=== PATIENT | female | born 1975 | race African-American/Black ===

== ENCOUNTER → 2017-01-08 | Outpatient (CLI) | payer BC | LOC: WI 06:53 | PROVIDERS: ATTEND Internal Medicine | DX: R14.0 Abdominal distension (gaseous) (principal); R11.2 Nausea with vomiting, unspecified | CPT/HCPCS: 76700 ==

== ENCOUNTER 2018-03-28 21:29 | Emergency (ER) | payer SELFPAY ==
--- NOTE | 2018-03-28 22:04 | RADIOLOGY REPORT (SQ) ---
EXAM DESCRIPTION: CHEST SINGLE VIEW COMPLETED DATE/TIME: 03/28/2018 9:56 pm REASON FOR STUDY: cough COMPARISON: 08/20/2010 EXAM PARAMETERS: NUMBER OF VIEWS: One view. TECHNIQUE: Single frontal radiographic view of the chest acquired. RADIATION DOSE: NA LIMITATIONS: None. FINDINGS: LUNGS AND PLEURA: No opacities, masses or pneumothorax. No pleural effusion. MEDIASTINUM AND HILAR STRUCTURES: No masses. Contour normal. HEART AND VASCULAR STRUCTURES: Heart normal in size. Normal vasculature. BONES: No acute findings. HARDWARE: None in the chest. OTHER: No other significant finding. IMPRESSION: NO ACUTE RADIOGRAPHIC FINDING IN THE CHEST. TECHNICAL DOCUMENTATION: JOB ID: [id number] [employer]- All Rights Reserved Reading location - IP/workstation name: [email or web address]
[2018-03-28 22:09] VITALS: BP 169/96
[2018-03-28] MEDS ORDERED: AZITHROMYCIN 250 MG TABLET PO ONE (23:35)
--- NOTE | 2018-03-28 23:35 | ER Document Report ---
ED General - General Chief Complaint: Cough Stated Complaint: FEVER,COUGH Time Seen by Provider: 03/28/18 22:32 Mode of Arrival: Ambulatory Information source: Patient Notes: Chief complaint: Cough History of complain:( obtained from----patient) 42 years old female presents today with 4 day history of increased cough in the last 2 weeks of coughing on and off. States he was swimming on a [place] and swallowed some wor[place] water. Denies any fever chills recently. Coughing up yellow-green sputum. No difficulty in breathing or wheezing. Onset: As above Duration: Gradual Severity: Moderate Quality: Sharp Context: As above Exacerbating factor and relieving factors: Exertion REVIEW OF SYSTEMS: CONSTITUTIONAL : Denies fever, chills, or sweats. Denies recent illness. EENT: Denies eye, ear, throat, or mouth pain or symptoms. Denies nasal or sinus congestion or discharge. Denies throat, tongue, or mouth swelling or difficulty swallowing. CARDIOVASCULAR: Denies chest pain. Denies palpitations or racing or irregular heart beat. Denies ankle edema. RESPIRATORY: Denies cough, cold, or chest congestion. Denies shortness of breath, difficulty breathing, or wheezing. GASTROINTESTINAL: Denies distention. Denies nausea, vomiting, or diarrhea. Denies blood in vomitus, stools, or per rectum. Denies black, tarry stools. Denies constipation. GENITOURINARY: Denies difficulty urinating, painful urination, burning, frequency, blood in urine, or discharge. FEMALE GENITOURINARY: Denies vaginal bleeding, heavy or abnormal periods, irregular periods. Denies vaginal discharge or odor. MUSCULOSKELETAL: Denies back or neck pain or stiffness. Denies joint pain or swelling. SKIN: Denies rash, lesions or sores. HEMATOLOGIC : Denies easy bruising or bleeding. LYMPHATIC: Denies swollen, enlarged glands. NEUROLOGICAL: Denies confusion or altered mental status. Denies passing out or loss of consciousness. Denies dizziness or lightheadedness. Denies headache. Denies weakness or paralysis or loss of use of either side. Denies problems with gait or speech. Denies sensory loss, numbness, or tingling. Denies seizures. PSYCHIATRIC: Denies anxiety or stress. Denies depression, suicidal ideation, or homicidal ideation. ALL OTHER SYSTEMS REVIEWED AND NEGATIVE. PHYSICAL EXAMINATION: GENERAL: Well-appearing, well-nourished and in no acute distress. HEAD: Atraumatic, normocephalic. EYES: Pupils equal round and reactive to light, extraocular movements intact, conjunctiva are normal. ENT: Nares patent, oropharynx clear without exudates. Moist mucous membranes. NECK: Normal range of motion, supple without lymphadenopathy LUNGS: Breath sounds clear to auscultation bilaterally and equal. No wheezes rales or rhonchi. HEART: Regular rate and rhythm without murmurs ABDOMEN: Soft, nontender, nondistended abdomen. No guarding, no rebound. No masses appreciated. Examination of genitals-deferred Musculoskeletal: Normal range of motion, no pitting or edema. No cyanosis. NEUROLOGICAL: Cranial nerves grossly intact. Normal speech, normal gait. Normal sensory, motor exams PSYCH: Normal mood, normal affect. SKIN: Warm, Dry, normal turgor, no rashes or lesions noted. Dictation was performed using [employer] voice recognition software TRAVEL OUTSIDE OF THE [place] IN LAST 30 DAYS: No - HPI Onset: Just prior to arrival Past Medical History - Social History Smoking Status: Never Smoker Cigarette use (# per day): No Chew tobacco use (# tins/day): No Smoking Education Provided: No Frequency of alcohol use: Rare Drug Abuse: None Lives with: Family Family History: Reviewed & Not Pertinent - Past Medical History Cardiac Medical History: Reports: Hx Hypertension Past Surgical History: Reports: Hx Section Review of Systems - Review of Systems Notes: Dictated Physical Exam - Vital signs Vitals: Temp Pulse BP Pulse Ox 98.5 F 64 169/96 H 100 03/28/18 22:07 03/28/18 22:07 03/28/18 22:07 03/28/18 22:07 - Notes Notes: Dictated Course - Vital Signs Vital signs: Temp Pulse Resp BP Pulse Ox 98.5 F 64 169/96 H 100 03/28/18 22:07 03/28/18 22:07 03/28/18 22:07 03/28/18 22:07 - Diagnostic Test Radiology reviewed: Reports reviewed - Chest x-ray reported by radiologist as no infiltration effusion or pneumothorax Discharge - Discharge Clinical Impression: Acute bronchitis Qualifiers: Bronchitis organism: unspecified organism Qualified Code(s): J20.9 - Acute bronchitis, unspecified Condition: Fair Disposition: HOME, SELF-CARE Instructions: Bronchitis ([facility]) Prescriptions: Clarithromycin [Biaxin 500 mg Tablet] 1 tab PO Q12 #28 tab Hydrocodone/Chlorphen P-Stirex [Tussionex Pennkinetic Susp] 5 ml PO BID #100 [email or web address] Referrals: JOELLE REAGAN MD [Primary Care Provider] - Follow up as needed
== END 2018-03-28 23:58 | disposition home or self-care (01) ==
LOC: ER 21:29
DX: J20.9 Acute bronchitis, unspecified (principal); R05 Cough; I10 Essential (primary) hypertension
CPT/HCPCS: 71045; 99283

== ENCOUNTER 2019-02-20 12:58 | Emergency (ER) | payer OTHER ==
[2019-02-20 13:03] VITALS: BP 142/69
--- NOTE | 2019-02-20 14:12 | ER Document Report ---
HPI - HPI Patient complains to provider of: fall on 02/07, R ankle pain Time Seen by Provider: 02/20/19 13:57 Pain Level: 5 Context: 43-year-old female presents emergency department with chief complaint of right ankle pain after a fall on 02/07/2019 at work. She states she twisted and fell on some stairs. She has wrapped in Sergio wrap instructed on ice and Epsom salt every day. She said the swelling and pain persists. She has some edema to the left knee fevers, redness, numbness or tingling in the extremity, does complain of some proximal fibular pain as well. She is able to bear weight on it and has been walking and working. No other complaints - REPRODUCTIVE Reproductive: DENIES: : Past Medical History - Social History Smoking Status: Current Every Day Smoker Family History: Reviewed & Not Pertinent - Past Medical History Cardiac Medical History: Reports: Hx Hypertension Pulmonary Medical History: Reports: Hx Bronchitis Renal/ Medical History: Denies: Hx Peritoneal Dialysis Past Surgical History: Reports: Hx Section, Hx Orthopedic Surgery Vertical Provider Document - CONSTITUTIONAL Notes: PHYSICAL EXAMINATION: Reviewed vital signs and charting by RN GENERAL: Alert, interacts well. No acute distress. HEAD: Normocephalic, atraumatic. EYES: Pupils equal, round. Extraocular movements intact. EXTREMITIES: Moves all 4 extremities spontaneously. Edema of the right lateral malleolus with tenderness along the distal aspect, no forefoot tenderness, tenderness to palpation along the proximal fibula. Normal distal neurovascular exam PSYCH: Normal affect, normal mood. SKIN: Warm, dry, normal turgor. No rashes or lesions noted. - INFECTION CONTROL TRAVEL OUTSIDE OF THE [place] IN LAST 30 DAYS: No Course - Re-evaluation Re-evalutation: 02/20/19 14:11 Well-appearing. She does have persistent edema to the lateral malleolus and ongoing pain x2 weeks. No previous imaging. I will get a right foot complete with a image to obtain the right fibula to rule out Maissonneuve fracture - Vital Signs Vital signs: Temp Pulse Resp BP Pulse Ox 98.3 F 59 L 16 142/69 H 100 02/20/19 13:01 02/20/19 13:01 02/20/19 13:01 02/20/19 13:01 02/20/19 13:01 Discharge - Discharge Clinical Impression: Right ankle pain Qualifiers: Chronicity: acute Qualified Code(s): M25.571 - Pain in right ankle and joints of right foot Condition: Good Disposition: HOME, SELF-CARE Instructions: Sprained Ankle ([facility]), Ice & Elevation ([facility]) Additional Instructions: You are seen in the emergency department this morning for ankle pain. X-rays did not show any evidence of a fracture. This is reassuring and is probably due to sprain or soft tissue injury. Please continue to do what you are doing. Because this is a Workmen's compensation issue you can obtain the images on disc from medical records. If your foot goes numb, turns purple or black, you can bear absolutely no weight on it please return to the emergency department for reevaluation. Referrals: JOELLE REAGAN MD [Primary Care Provider] - Follow up as needed
--- NOTE | 2019-02-20 15:08 | RADIOLOGY REPORT (SQ) ---
EXAM DESCRIPTION: TIBIA FIBULA RIGHT COMPLETED DATE/TIME: 02/20/2019 2:49 pm REASON FOR STUDY: ?[email or web address] COMPARISON: None. NUMBER OF VIEWS: Two views. TECHNIQUE: Two radiographic images acquired of the right tibia and fibula to include the knee and an kle in at least one projection. LIMITATIONS: None. FINDINGS: MINERALIZATION: Normal. BONES: No acute fracture or dislocation. No worrisome bone lesions. SOFT TISSUES: No obvious swelling or foreign body. OTHER: No other significant finding. IMPRESSION: NEGATIVE STUDY OF THE RIGHT TIBIA AND FIBULA. NO RADIOGRAPHIC EVIDENCE OF ACUTE INJURY. TECHNICAL DOCUMENTATION: JOB ID: [id number] [employer]- All Rights Reserved Reading location - IP/workstation name: [email or web address]
== END 2019-02-20 15:36 | disposition home or self-care (01) ==
LOC: ER 12:58
DX: M25.571 Pain in right ankle and joints of right foot (principal); M89.8X6 Other specified disorders of bone, lower leg; M25.471 Effusion, right ankle; W10.9XXA Fall (on) (from) unspecified stairs and steps, initial encounter; Y99.0 Civilian activity done for income or pay; F17.200 Nicotine dependence, unspecified, uncomplicated; I10 Essential (primary) hypertension
CPT/HCPCS: 99283